=== PATIENT | male | born 1955 | race Hispanic/Latino ===

== ENCOUNTER 2016-12-17 14:23 | Inpatient (IN) | payer OTHER ==
[2016-12-17 16:43] LABS: Anion Gap 21 mmol/L; BUN/Creatinine Ratio 13.75; Blood Urea Nitrogen 11 mg/dL (9-20); Calcium 8.7 mg/dL (8.4-10.2); Carbon Dioxide 23 mmol/L (22-30); Chloride 97.4 mmol/L (98-107); Glucose 129 mg/dL (75-100); Potassium 3.7 mmol/L (3.6-5.0); Sodium 138 mmol/L (137-145)
[2016-12-17 16:49] LABS: Bilirubin,Urine NEG (Negative); Blood,Urine MOD (Negative); Granular Casts,Urine 1 /LPF; Ketones,Urine 20 mg/dL (Negative); Leukocyte Esterase,Urine NEG (Negative); Mucus,Urine FEW /HPF; Nitrite,Urine NEG (Negative); Urobilinogen,Urine < 2.0 mg/dL (<2.0)
[2016-12-17 17:02] LABS: Basophils % (Auto) 0.2 % (0.0-1.8); Hematocrit 48.9 % (35.5-45.6); Hemoglobin 16.7 gm/dl (11.8-15.2); Mean Corpuscular HGB Conc 34 % (32-34); Mean Corpuscular Hemoglobin 33 pg (28-32); Mean Corpuscular Volume 97 fl (84-94); Platelet Count 294 K/mm3 (140-440); Red Blood Count 5.02 M/mm3 (3.65-5.03); Red Cell Distribution Width 13.9 % (13.2-15.2); White Blood Count 16.7 K/mm3 (4.5-11.0)
--- NOTE | 2016-12-17 18:39 | Emergency Department Report ---
ED N/V/D HPI - General Chief complaint: Nausea/Vomiting/Diarrhea Stated complaint: DEHYRATED Time Seen by Provider: 12/17/16 17:33 Source: EMS Mode of arrival: Stretcher Limitations: No Limitations - History of Present Illness Initial comments: 61-year-old male with no past medical history is presented to the ED complaining of syncopal episode. Patient states over the last day he has had increased activity of his job and then today felt warm while at work. Patient admits he called his sister and by the time he got to her house he felt generalized weakness and then he had positive LOC. Sister caught him before he could before she laid him down slowly. Sister admits that he had brief LOC. When he was alert he was not confused afterwards. Patient currently has no complaints except for nausea epigastric abdominal pain from vomiting. Patient denies fevers/chills, chest pain, diarrhea. MD complaint: nausea, vomiting -: Gradual, days(s) (1) Description of Vomiting: food contents Location: epigastric Radiation: none Severity: mild Pain Scale: 2 Quality: cramping Consistency: intermittent Improves with: none Worsens with: eating - Related Data Allergies Allergy/AdvReac Type Severity Reaction Status Date / Time codeine AdvReac Anaphylaxis Verified 12/17/16 16:00 ED Review of Systems ROS: Stated complaint: DEHYRATED Other details as noted in HPI Constitutional: denies: chills, fever Eyes: denies: eye pain, eye discharge, vision change ENT: denies: ear pain, throat pain Respiratory: denies: cough, shortness of breath, wheezing Cardiovascular: denies: chest pain, palpitations Endocrine: no symptoms reported. denies: other Gastrointestinal: abdominal pain, nausea, vomiting. denies: diarrhea, constipation, hematemesis Genitourinary: denies: urgency, dysuria Musculoskeletal: denies: back pain, joint swelling, arthralgia Skin: denies: rash, lesions Neurological: other (syncope ). denies: headache, weakness, paresthesias Psychiatric: denies: anxiety, depression Hematological/Lymphatic: denies: easy bleeding, easy bruising ED Past Medical Hx - Past Medical History Previous Medical History?: No - Surgical History Past Surgical History?: No ED Physical Exam - General Limitations: No Limitations General appearance: alert, in no apparent distress - Head Head exam: Present: atraumatic, normocephalic - Eye Eye exam: Present: normal appearance - ENT ENT exam: Present: mucous membranes moist - Neck Neck exam: Present: normal inspection - Respiratory Respiratory exam: Present: normal lung sounds bilaterally. Absent: respiratory distress - Cardiovascular Cardiovascular Exam: Present: regular rate, normal rhythm. Absent: systolic murmur, diastolic murmur, rubs, gallop - GI/Abdominal GI/Abdominal exam: Present: soft, normal bowel sounds, other (abdominal exam benign ). Absent: distended, tenderness, guarding, rebound - Rectal Rectal exam: Present: deferred - Extremities Exam Extremities exam: Present: normal inspection - Back Exam Back exam: Present: normal inspection - Neurological Exam Neurological exam: Present: alert, oriented X3 - Psychiatric Psychiatric exam: Present: normal affect, normal mood - Skin Skin exam: Present: warm, dry, intact, normal color. Absent: rash ED Course Vital Signs 12/17/16 12/17/16 12/17/16 15:49 15:55 16:34 Temperature 98.8 F 98.8 F Pulse Rate 94 H 94 H Respiratory 18 18 18 Rate Blood Pressure 146/88 Blood Pressure 146/88 [Left] O2 Sat by Pulse 97 97 97 Oximetry 12/17/16 20:36 Temperature 98.1 F Pulse Rate 86 Respiratory 18 Rate Blood Pressure Blood Pressure 148/76 [Left] O2 Sat by Pulse 100 Oximetry ED Medical Decision Making - Lab Data Result diagrams: 12/17/16 16:07 12/17/16 16:07 - EKG Data -: EKG Interpreted by Ga EKG shows normal: sinus rhythm, axis (upright), intervals (qTC 504) - EKG Data When compared to previous EKG there are: previous EKG unavailable Interpretation: normal EKG (prolonged QTC ) - Radiology Data Radiology results: report reviewed, image reviewed no acute findings. no evidence of cholecystitis - Medical Decision Making 61-year-old male with no past medical history is presenting with department complaining of syncopal episode. Likely this is secondary to volume contraction secondary dehydration as patient states his abdomen sun all day. However given his prolonged QTC, I will order mag and admit pt to telemetry for syncopal episode. Dr Betancourt has accepted pt to his service - Differential Diagnosis GI bleed, OFELIA Critical Care Time: No Critical care attestation.: If time is entered above; I have spent that time in minutes in the direct care of this critically ill patient, excluding procedure time. ED Disposition Clinical Impression: Dehydration, Syncope, Prolonged QT interval syndrome Disposition: OP ADMIT IP TO THIS HOSP Is pt being admited?: Yes Does the pt Need Aspirin: No Condition: Stable
--- NOTE | 2016-12-17 19:00 | Admit Criteria Form ---
Admission Criteria Documentation: TELEMETRY CARE Telemetry Admission Guidelines (Place 'X' for any and all applicable criteria): Admission to telemetry [A] may be indicated for ANY ONE of the following(1)(2)(3 )(4)(5): [ ]I. Cardiac disease, including ANY ONE of the following (9)(10)(11)(12)(13 ): [ ]a) Postacute NE [ ]b) Low-risk patients with ST-segment elevation NE who have undergone successful percutaneous coronary intervention [ ]c) Unstable angina [ ]d) Suspected NE (until it is ruled out) [ ]e) Post cardiac surgery (first 48 to 72 hours unless complications occur) [ ]f) Acute arrhythmias (including significant tachycardia or bradycardia) [B] [ ]g) Firing of an implantable cardioverter defibrillator [C] [ ]h) Suspected pacemaker or implantable cardioverter defibrillator malfunction (10) [ ]i) New administration or adjustment of an antiarrhythmic drug [D ] [ ]j) Child admitted for acute congestive heart failure [ ]j) Long QT syndrome [ ]k) Advanced heart block (eg, second-degree Mobitz type II, third- degree heart block) [ ]l) Acute myocarditis or pericarditis [ ]m) Short-term (ambulatory or inpatient) monitoring after a cardiac procedure as indicated by ANY ONE of the following [E]: [ ]i) Electrophysiologic studies [ ]ii) Percutaneous coronary intervention with stent placement [ ]iii) Pacemaker placement with cardiac conduction defect [ ]iv) Implantable cardiac defibrillator placement [ ]II. Drug overdose or poisoning with substance that causes arrhythmias or QT prolongation (eg, phenothiazines, sympathomimetic agents, cyclic antidepressants, digitalis, antiarrhythmic drugs)(15) [ ]III. Short-term (ambulatory or inpatient) monitoring after therapeutic or diagnostic procedure requiring conscious sedation or anesthesia (eg, endoscopy, elective cardioversion) [ ]IV. Acute cerebrovascular even[F](18) [ ]V. Massive blood transfusion (eg, at least 10 units of packed red blood cells in 24 hours) [ ]. Variceal bleeding after endoscopy, sclerotherapy, or IV vasopressin [ ]VII. Uncorrected electrolyte abnormalities associated with an increased risk of dangerous arrhythmia [G]; examples include [ ]a) Hyperkalemia with attributable ECG changes [ ]b) Potassium greater than 6.5 mmol/L (mEq/L) in a patient without history of chronic renal disease [ ]c) Prolonged QT attributed to hypokalemia, hypomagnesemia, or hypocalcemia [X]VIII.Unexplained syncope or other neurologic event suspected of being due to arrhythmia due to a finding that increases risk; examples include(19)(20)(21): [X]a) High-risk ECG findings (eg, bifascicular block, bradycardia, abnormal QT interval, ventricular pre- excitation) [ ]b) History of previous syncope due to arrhythmia [ ]c) Abnormal ventricular function (eg, reduced ejection fraction ) [ ]d) Exertional or supine syncope [ ]e) Concerning syncope characteristics (eg, sudden loss of consciousness without prodrome) [ ]f) Family history of sudden [ ]g) Use of arrhythmogenic medication [ ]h) Suspected cardiac ischemia [ ]i) Known channelopathy (eg, long QT syndrome, Brugada syndrome, or catecholaminergic paroxysmal ventricular tachycardia) [ ]j) Known structural heart disease (eg, hypertrophic cardiomyopathy , severe valvular disease) [ ]k) Palpitations preceding syncope The original [employer] content created by [employer] has been revised. The portions of the content which have been revised are identified through the use of italic text or in bold, and [facility] [employer] has neither reviewed nor approved the modified material. All other unmodified content is copyright [employer]. Please see references footnoted in the original [employer] edition 2016 Admission Criteria Met: Yes
[2016-12-17 19:06] LABS: Albumin 4.2 g/dL (3.9-5); Albumin/Globulin Ratio 1.5 %; Bilirubin,Direct 0.3 mg/dL (0-0.2); Bilirubin,Indirect 0.5 mg/dL; Bilirubin,Total 0.8 mg/dL (0.1-1.2)
--- NOTE | 2016-12-17 19:16 | Ultrasound Report ---
FINAL REPORT PROCEDURE: US ABDOMEN LIMITED TECHNIQUE: Real-time sonography in multiple planes of the gallbladder fossa and CBD with imaging of the adjacent liver, pancreas, and right kidney was performed with image documentation. CPT 01662 HISTORY: epigastric pain COMPARISON: No prior studies are available for comparison. FINDINGS: Liver: Normal size and echotexture with no evidence of cystic or solid mass lesion. Gallbladder: Fluid filled. No gallstones, wall thickening, pericholecystic fluid, or sonographic Perez's sign . Intrahepatic bile ducts: Normal . Extrahepatic bile ducts: Common bile duct measures 2 millimeters in caliber. Pancreas: Not well-visualized. Right kidney: Normal echotexture. No focal renal mass, calculus, or hydronephrosis. Other: No free fluid. IMPRESSION: No sonographic evidence of cholelithiasis or acute cholecystitis
[2016-12-17] MEDS ORDERED: ZOFRAN IV ONE (19:44)
[2016-12-17] MEDS ORDERED: NACL 0.9% 1000 ML 1,000 ML IV ONE ×2 (19:49→21:56)
[2016-12-17] MEDS ORDERED: MAGNESIUM SULFATE 2GM/50ML 2 GM/50 ML BAG IV ONE (21:28)
[2016-12-17] MEDS ORDERED: ZOFRAN IV PRN (21:57)
[2016-12-17] MEDS ORDERED: TYLENOL PO PRN (21:58)
[2016-12-17] MEDS ORDERED: RESTORIL PO PRN (21:59)
--- NOTE | 2016-12-17 22:52 | History and Physical Report ---
History of Present Illness Date of examination: 12/17/16 Date of admission: 12/17/16 21:46 Chief complaint: Complaint of syncopal attack History of present illness: History of present illness: Patient is a 61-year-old male. He had a syncopal at home after he left the work. Patient admitted to having nausea or vomiting prior to syncopal attack and denied history of chest, Shortness of breath fever or chills, was also no history of dizziness prior to this syncopal episode. Syncopal episode lasted for few minutes and patient subsequently presented to the emergency room Past History Past Medical History: GERD Medications and Allergies Allergies Allergy/AdvReac Type Severity Reaction Status Date / Time codeine AdvReac Anaphylaxis Verified 12/17/16 16:00 Active Meds: Active Medications Acetaminophen (Tylenol) 650 mg PO Q4H PRN PRN Reason: For Pain/Fever/Headache Sodium Chloride (Nacl 0.9% 1000 Ml) 1,000 mls @ 125 mls/hr IV ONCE ONE Stop: 12/18/16 05:55 Ondansetron HCl (Zofran) 4 mg IV Q6H PRN PRN Reason: Nausea And Vomiting Temazepam (Restoril) 15 mg PO QHS PRN PRN Reason: Insomnia Review of Systems Constitutional: no weight loss, no weight gain, no fever, no chills, no sweats, no night sweats, no anorexia, no fatigue, no weakness, no malaise, no lethargy, no poor appetite, no daytime sleepiness, no chronic pain Eyes: bilateral: other (NO BILATERAL EYE SYMPTOMS) Ears, nose, mouth and throat: no ear pain, no decreased hearing, no nasal congestion, no nasal discharge, no sinus pressure, no mouth pain, no dysphagia, no hoarseness, no sore throat, no swelling in mouth, no swelling in throat, no odynophagia, no headache, no vertigo, no pain front of neck, no neck fullness/ pressure, no neck lump Cardiovascular: syncope, no chest pain, no orthopnea, no palpitations, no rapid/ irregular heart beat, no edema, no lightheadedness, no shortness of breath, no dyspnea on exertion, no high blood pressure, no leg edema Respiratory: no cough, no excessive sputum, no hemoptysis, no shortness of breath, no congestion, no wheezing, no pain, no pain on inspiration, no sleep apnea, no home oxygen Gastrointestinal: nausea, vomiting, heartburn, no abdominal pain, no diarrhea, no jaundice Genitourinary Male: no dysuria, no hematuria, no flank pain, no discharge, no urinary frequency, no urinary hesitancy, no nocturia, no incontinence, no impotence, no decreased libido, no testicular lump, no difficulties fathering child, no urinary retention Rectal: no pain, no incontinence, no itching, no hemorrhoids, no other Musculoskeletal: no shooting arm pain, no arm numbness/tingling, no leg numbness /tingling, no hot joints, no muscle cramps Integumentary: no rash, no pruritis, no sores, no wounds, no jaundice, no boils , no growths, no bullae, no lesions, no darkening of skin, no depigmentation, no acne, no dryness, no color changes, no brittle nails, no striae, no hirsutism , no foot/leg ulcers, no onychomycosis Neurological: syncope, no head injury, no transient paralysis, no paralysis, no weakness, no parathesias, no numbness, no tingling, no seizures, no tremors, no ataxia, no headaches, no migraines, no convulsions, no change in speech, no change in mentation, no memory loss, no sensory deficit, no double vision, no loss of vision, no hearing difficulties, no burning pain, no paralysis, no spasticity Psychiatric: no anxiety, no memory loss, no change in sleep habits, no sleep disturbances, no insomnia, no hypersomnia, no change in appetite, no change in libido, no suicidal ideation, no disorientation, no hallucinations, no paranoia , no depression, no hopelessness, no anhedonia, no anxiety attacks, no difficulties concentrating, no confusion, no irritability, no sadness/ tearfullness, no mood swings, no other Endocrine: no cold intolerance, no heat intolerance, no polyphagia, no excessive thirst, no polydipsia, no polyuria, no nocturia, no excessive sweating , no flushing, no weight change, no increase in ring/shoe/hat size, no proptosis , no deepening of the voice, no thyroid mass, no palpatations, no high blood sugars Hematologic/Lymphatic: no easy bruising, no easy bleeding, no lymphadenopathy, no lymphedema, no thrombophilia, no other Allergic/Immunologic: no allergic rhinitis Exam - Constitutional Vitals: Temp Pulse Resp BP Pulse Ox 98.1 F 86 18 148/76 100 12/17/16 20:36 12/17/16 20:36 12/17/16 20:36 12/17/16 20:36 12/17/16 20:36 General appearance: Present: no acute distress - EENT Eyes: Present: PERRL. Absent: conjunctival injection, exopthalmos ENT: no hearing intact, no clear oral mucosa, no dentition normal, no hearing decreased - Neck Neck: Present: supple, normal ROM. Absent: rigidity, enlarged thyroid, masses or JVD, carotid bruits - Respiratory Respiratory effort: normal - Cardiovascular Heart Sounds: Present: S1 & S2. Absent: gallop, systolic murmur, diastolic murmur, rub, click - Extremities Extremities: no ischemia, No edema Peripheral Pulses: within normal limits - Abdominal General gastrointestinal: Present: deferred, non-tender, non-distended. Absent : tender, distended, hypoactive bowel sounds, hepatomegaly, splenomegaly, mass Male genitourinary: Present: deferred - Rectal Rectal Exam: deferred - Integumentary Integumentary: Present: clear, warm - Musculoskeletal Musculoskeletal: strength equal bilaterally - Psychiatric Psychiatric: appropriate mood/affect - Neurologic Neurologic: CNII-XII intact Results - Labs CBC & Chem 7: 12/17/16 16:07 12/17/16 16:07 Labs: Laboratory Last Values WBC 16.7 K/mm3 (4.5-11.0) H 12/17/16 16:07 RBC 5.02 M/mm3 (3.65-5.03) 12/17/16 16:07 Hgb 16.7 gm/dl (11.8-15.2) H 12/17/16 16:07 Hct 48.9 % (35.5-45.6) H 12/17/16 16:07 MCV 97 fl (84-94) H 12/17/16 16:07 MCH 33 pg (28-32) H 12/17/16 16:07 MCHC 34 % (32-34) 12/17/16 16:07 RDW 13.9 % (13.2-15.2) 12/17/16 16:07 Plt Count 294 K/mm3 (140-440) 12/17/16 16:07 Lymph % (Auto) 3.4 % (13.4-35.0) L 12/17/16 16:07 [place] % (Auto) 9.6 % (0.0-7.3) H 12/17/16 16:07 Eos % (Auto) 0.0 % (0.0-4.3) 12/17/16 16:07 Baso % (Auto) 0.2 % (0.0-1.8) 12/17/16 16:07 Lymph # 0.6 K/mm3 (1.2-5.4) L 12/17/16 16:07 [place] # 1.6 K/mm3 (0.0-0.8) H 12/17/16 16:07 Eos # 0.0 K/mm3 (0.0-0.4) 12/17/16 16:07 Baso # 0.0 K/mm3 (0.0-0.1) 12/17/16 16:07 Seg Neutrophils % 86.8 % (40.0-70.0) H 12/17/16 16:07 Seg Neutrophils # 14.5 K/mm3 (1.8-7.7) H 12/17/16 16:07 Sodium 138 mmol/L (137-145) 12/17/16 16:07 Potassium 3.7 mmol/L (3.6-5.0) 12/17/16 16:07 Chloride 97.4 mmol/L (98-107) L 12/17/16 16:07 Carbon Dioxide 23 mmol/L (22-30) 12/17/16 16:07 Anion Gap 21 mmol/L 12/17/16 16:07 BUN 11 mg/dL (9-20) 12/17/16 16:07 Creatinine 0.8 mg/dL (0.8-1.5) 12/17/16 16:07 Estimated GFR > 60 ml/min 12/17/16 16:07 BUN/Creatinine Ratio 13.75 % 12/17/16 16:07 Glucose 129 mg/dL (75-100) H 12/17/16 16:07 Calcium 8.7 mg/dL (8.4-10.2) 12/17/16 16:07 Total Bilirubin 0.80 mg/dL (0.1-1.2) 12/17/16 16:07 Direct Bilirubin 0.3 mg/dL (0-0.2) H 12/17/16 16:07 Indirect Bilirubin 0.5 mg/dL 12/17/16 16:07 AST 22 units/L (5-40) 12/17/16 16:07 ALT 16 units/L (7-56) 12/17/16 16:07 Alkaline Phosphatase 67 units/L (35-129) 12/17/16 16:07 Troponin T < 0.010 ng/mL (0.00-0.029) 12/17/16 16:07 NT-Pro-B Natriuret Pep 49.19 pg/mL (0-900) 12/17/16 16:07 Total Protein 7.0 g/dL (6.3-8.2) 12/17/16 16:07 Albumin 4.2 g/dL (3.9-5) 12/17/16 16:07 Albumin/Globulin Ratio 1.5 % 12/17/16 16:07 Lipase 25 units/L (13-60) 12/17/16 16:07 Urine Color Yellow (Yellow) 12/17/16 16:34 Urine Turbidity Clear (Clear) 12/17/16 16:34 Urine pH 8.0 (5.0-7.0) H 12/17/16 16:34 Ur Specific [place] 1.012 (1.003-1.030) 12/17/16 16:34 Urine Protein 30 mg/dl mg/dL (Negative) 12/17/16 16:34 Urine Glucose (UA) Neg mg/dL (Negative) 12/17/16 16:34 Urine Ketones 20 mg/dL (Negative) 12/17/16 16:34 Urine Blood Mod (Negative) 12/17/16 16:34 Urine Nitrite Neg (Negative) 12/17/16 16:34 Urine Bilirubin Neg (Negative) 12/17/16 16:34 Urine Urobilinogen < 2.0 mg/dL (<2.0) 12/17/16 16:34 Ur Leukocyte Esterase Neg (Negative) 12/17/16 16:34 Urine WBC (Auto) 1.0 /HPF (0.0-6.0) 12/17/16 16:34 Urine RBC (Auto) 4.0 /HPF (0.0-6.0) 12/17/16 16:34 U Epithel Cells (Auto) < 1.0 /HPF (0-13.0) 12/17/16 16:34 Hyaline Casts 2 /LPF 12/17/16 16:34 Granular Casts 1 /LPF 12/17/16 16:34 Urine Mucus Few /HPF 12/17/16 16:34 Assessment and Plan - Patient Problems (1) Dehydration Current Visit: Yes Status: Acute (2) Prolonged QT interval syndrome Current Visit: Yes Status: Acute (3) Syncope Current Visit: Yes Status: Acute Qualifiers: Syncope type: S Encounter type: E Plan to address problem: Patient will be admitted to the medical floor on telemetry and have bilateral carotid doppler ultrasound in the morning and also 2-D echo in the morning she will will be on IV normal saline at 125 mL an hour for rehydration.Patient will also be on IV Zofran 4 mg every 6 hours for nausea vomiting and Tylenol 650 mg by mouth every 4 hours for fever or headache patient will have cardiac enzyme involving troponin total CK and CK-MB checked every 6 hours 2 more levels
[2016-12-18] MEDS ORDERED: NACL 0.9% 1000 ML 1,000 ML IV ONE (01:00)
[2016-12-18] MEDS: PROTONIX PO SCH ×2 (01:16→09:19)
--- NOTE | 2016-12-18 08:58 | XRay Report ---
Single view chest: History: Syncope. Findings: Normal cardiomediastinal silhouette the trachea is midline. No consolidation, pneumothorax or pleural effusion. Impression: No acute cardiopulmonary findings.
--- NOTE | 2016-12-18 10:57 | Consultation ---
History of Present Illness Consult date: 12/18/16 Consult reason: syncope, other (Prolonged QTc interval) History of present illness: This is a 61 year old male with no past medical history who is admitted with syncope thought secondary to dehydration. Patient works in construction outside and on yesterday he felt light headed became nauseous and passed out. He denies chest pain and shortness of breath just prior to his syncopal episode. When he came to himself he had nausea vomiting and abdominal pain. His presenting ECG shows a normal sinus rhythm with a prolonged QT interval of 452ms thus this cardiac consultation. His labs shows a normal potassium and serum calcium on presentation. Patient denies drug use. No events on telemetry monitoring. Medications and Allergies Allergies Allergy/AdvReac Type Severity Reaction Status Date / Time codeine AdvReac Anaphylaxis Verified 12/17/16 16:00 Active Meds: Active Medications Acetaminophen (Tylenol) 650 mg PO Q4H PRN PRN Reason: For Pain/Fever/Headache Ondansetron HCl (Zofran) 4 mg IV Q6H PRN PRN Reason: Nausea And Vomiting Pantoprazole Sodium (Protonix) 40 mg PO QDAY LUCIO Last Admin: 12/18/16 09:19 Dose: 40 mg Temazepam (Restoril) 15 mg PO QHS PRN PRN Reason: Insomnia Physical Examination Vital Signs Temp Pulse Resp BP Pulse Ox 98.8 F 94 H 18 146/88 97 12/17/16 15:49 12/17/16 15:49 12/17/16 15:49 12/17/16 15:49 12/17/16 15:49 General appearance: no acute distress HEENT: Positive: PERRL Neck: Positive: trachea midline Cardiac: Positive: Reg Rate and Rhythm Lungs: Positive: Decreased Breath Sounds Neuro: Positive: Grossly Intact Results 12/17/16 16:07 12/17/16 16:07 Assessment and Plan Syncope s/t dehydration Prolonged QTc interval Leukocytosis Plan: Repeat 12 lead ECG. Echocardiogram for LVEF assessment.
--- NOTE | 2016-12-18 11:29 | Progress Note ---
Assessment and Plan Assessment and plan: Patient is a 61-year-old man without any prior medical history except for GERD on occasion, who hasn't seen a PCP/doctor in over 30 years who presents with syncopal episode. 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 He drove to his sister home which is about 45 minutes away and had a witnessed syncopal episode without any seizure activity noted. He denies any chest pain or palpitations prior to the syncopal episode. His diagnosis of dehydration. He is found have a white blood cell count 16.7 without any cough, fever or chills. And abdominal ultrasound reported as- syncopal episode: no acute cholecystitis or cholelithiasis. ED documented EKG has prolonged QT interval; therefore, I consulted cardiology. -Syncopal episode: Ordered echocardiogram -Prolonged QT interval: Consulted cardiology -Leukocytosis appears reactive: Ordered chest x-ray, blood culture, ua. -DVT prophylaxis: Subcutaneous heparin -GI prophylaxis: PPI History Interval history: Patient seen and examined. Follow up on syncope. Overnight uneventful. No cp, sob, n/v or severe headaches. Imaging, old records, testing, labs, nursing notes reviewed. Hospitalist Physical - Physical exam Narrative exam: GEN: Thin frail man BMI 17.3 NAD, AWAKE, ALERT, ORIENTATED x 3 HEENT: NCAT, PERRL, EOMI, OP CLEAR NECK: SUPPLE, NO THYROMEGALY, NO JVD, NO LAD CVS: RRR, NORMAL S1S2 LUNGS/CHEST: CTA B, NORMAL CHEST EXPANSION B, GOOD AIR ENTRY B ABD: SOFT, NTND, GBS, NO REBOUND OR GUARDING EXT/SKIN: NO SIGNIFICANT EDEMA OR RASH MSK: FROM X 4 EXTREMITIES NEURO: CN 2-12 GROSSLY INTACT, NO FOCAL DEFICITS PSY: CALM - Constitutional Vitals: Temp Pulse Resp BP Pulse Ox 99.2 F 69 18 132/70 95 12/18/16 07:20 12/18/16 07:20 12/18/16 07:20 12/18/16 07:20 12/18/16 07:20 General appearance: Present: no acute distress Results - Labs CBC & Chem 7: 12/17/16 16:07 12/17/16 16:07 Labs: Laboratory Last Values WBC 16.7 K/mm3 (4.5-11.0) H 12/17/16 16:07 RBC 5.02 M/mm3 (3.65-5.03) 12/17/16 16:07 Hgb 16.7 gm/dl (11.8-15.2) H 12/17/16 16:07 Hct 48.9 % (35.5-45.6) H 12/17/16 16:07 MCV 97 fl (84-94) H 12/17/16 16:07 MCH 33 pg (28-32) H 12/17/16 16:07 MCHC 34 % (32-34) 12/17/16 16:07 RDW 13.9 % (13.2-15.2) 12/17/16 16:07 Plt Count 294 K/mm3 (140-440) 12/17/16 16:07 Lymph % (Auto) 3.4 % (13.4-35.0) L 12/17/16 16:07 [place] % (Auto) 9.6 % (0.0-7.3) H 12/17/16 16:07 Eos % (Auto) 0.0 % (0.0-4.3) 12/17/16 16:07 Baso % (Auto) 0.2 % (0.0-1.8) 12/17/16 16:07 Lymph # 0.6 K/mm3 (1.2-5.4) L 12/17/16 16:07 [place] # 1.6 K/mm3 (0.0-0.8) H 12/17/16 16:07 Eos # 0.0 K/mm3 (0.0-0.4) 12/17/16 16:07 Baso # 0.0 K/mm3 (0.0-0.1) 12/17/16 16:07 Seg Neutrophils % 86.8 % (40.0-70.0) H 12/17/16 16:07 Seg Neutrophils # 14.5 K/mm3 (1.8-7.7) H 12/17/16 16:07 Sodium 138 mmol/L (137-145) 12/17/16 16:07 Potassium 3.7 mmol/L (3.6-5.0) 12/17/16 16:07 Chloride 97.4 mmol/L (98-107) L 12/17/16 16:07 Carbon Dioxide 23 mmol/L (22-30) 12/17/16 16:07 Anion Gap 21 mmol/L 12/17/16 16:07 BUN 11 mg/dL (9-20) 12/17/16 16:07 Creatinine 0.8 mg/dL (0.8-1.5) 12/17/16 16:07 Estimated GFR > 60 ml/min 12/17/16 16:07 BUN/Creatinine Ratio 13.75 % 12/17/16 16:07 Glucose 129 mg/dL (75-100) H 12/17/16 16:07 POC Glucose 89 (70-105) 12/18/16 07:52 Calcium 8.7 mg/dL (8.4-10.2) 12/17/16 16:07 Total Bilirubin 0.80 mg/dL (0.1-1.2) 12/17/16 16:07 Direct Bilirubin 0.3 mg/dL (0-0.2) H 12/17/16 16:07 Indirect Bilirubin 0.5 mg/dL 12/17/16 16:07 AST 22 units/L (5-40) 12/17/16 16:07 ALT 16 units/L (7-56) 12/17/16 16:07 Alkaline Phosphatase 67 units/L (35-129) 12/17/16 16:07 Troponin T < 0.010 ng/mL (0.00-0.029) 12/17/16 16:07 NT-Pro-B Natriuret Pep 49.19 pg/mL (0-900) 12/17/16 16:07 Total Protein 7.0 g/dL (6.3-8.2) 12/17/16 16:07 Albumin 4.2 g/dL (3.9-5) 12/17/16 16:07 Albumin/Globulin Ratio 1.5 % 12/17/16 16:07 Lipase 25 units/L (13-60) 12/17/16 16:07 Urine Color Yellow (Yellow) 12/17/16 16:34 Urine Turbidity Clear (Clear) 12/17/16 16:34 Urine pH 8.0 (5.0-7.0) H 12/17/16 16:34 Ur Specific [place] 1.012 (1.003-1.030) 12/17/16 16:34 Urine Protein 30 mg/dl mg/dL (Negative) 12/17/16 16:34 Urine Glucose (UA) Neg mg/dL (Negative) 12/17/16 16:34 Urine Ketones 20 mg/dL (Negative) 12/17/16 16:34 Urine Blood Mod (Negative) 12/17/16 16:34 Urine Nitrite Neg (Negative) 12/17/16 16:34 Urine Bilirubin Neg (Negative) 12/17/16 16:34 Urine Urobilinogen < 2.0 mg/dL (<2.0) 12/17/16 16:34 Ur Leukocyte Esterase Neg (Negative) 12/17/16 16:34 Urine WBC (Auto) 1.0 /HPF (0.0-6.0) 12/17/16 16:34 Urine RBC (Auto) 4.0 /HPF (0.0-6.0) 12/17/16 16:34 U Epithel Cells (Auto) < 1.0 /HPF (0-13.0) 12/17/16 16:34 Hyaline Casts 2 /LPF 12/17/16 16:34 Granular Casts 1 /LPF 12/17/16 16:34 Urine Mucus Few /HPF 12/17/16 16:34
[2016-12-18] MEDS ORDERED: HEPARIN 10,000 UNITS/10 ML IV ONE ×2 (13:06→17:00)
[2016-12-18] MEDS ORDERED: NITROSTAT SL PRN (13:06)
[2016-12-18] MEDS ORDERED: PLAVIX PO ONE ×2 (13:11→17:00)
[2016-12-18 13:56] LABS: Hematocrit 47.2 % (35.5-45.6); Hemoglobin 15.7 gm/dl (11.8-15.2)
[2016-12-18 14:08] LABS: INR 1.14 (0.87-1.13)
[2016-12-18 14:09] LABS: Partial Thromboplastin Time 30.5 Sec. (24.2-36.6)
[2016-12-18] MEDS: TOPROL XL PO SCH (16:00)
[2016-12-18] MEDS: HALFPRIN EC PO SCH (16:00)
[2016-12-18] MEDS: HEPARIN/ 0.45% NACL-25,000 UNIT/500 ML 25,000 UNITS/500 ML BAG IV SCH (17:07)
--- NOTE | 2016-12-19 09:13 | Progress Note ---
Assessment and Plan Syncope preceded by atypical retrosternal chest pain ECG on admission - subtle ST segment elevation in anteroseptal leads that ultimately recovered without reciprocal changes Echo is showing a low normal LVEF, anterior wall hypokinesis and possible ASD Cardiac enzymes are negative to date Patient is currently asymptomatic Recommendations: Unstable angina protocol (asa, heparin, metoprolol, plavix, lipitor, ntg) Coronary angiography on wednesday (sooner if any recurrent chest pain or hemodynamic instability) Subjective Date of service: 12/19/16 Principal diagnosis: unstable angina Interval history: No further chest pain Objective Vital Signs Temp Pulse Pulse Pulse Pulse Pulse Pulse 12/19/16 07:24 98.3 F 64 12/19/16 06:49 98.5 F 58 L 12/19/16 06:00 63 12/19/16 01:00 98.1 F 63 12/18/16 20:12 98.3 F 66 66 66 66 66 12/18/16 16:00 65 12/18/16 15:00 98.7 F 69 69 69 69 69 12/18/16 11:10 98.4 F 65 65 65 65 65 Resp BP BP Pulse Ox 12/19/16 07:24 18 141/80 97 12/19/16 06:49 21 129/77 97 12/19/16 06:00 12/19/16 01:00 21 118/74 98 12/18/16 20:12 20 127/79 97 12/18/16 16:00 147/79 12/18/16 15:00 20 173/87 12/18/16 11:10 18 127/66 - Physical Examination HEENT: Positive: PERRL, Normocephaly Neck: Positive: trachea midline Cardiac: Positive: Reg Rate and Rhythm Lungs: Positive: clear to auscultation Neuro: Positive: Grossly Intact Abdomen: Positive: Unremarkable Skin: Positive: Clear Gait: Normal Gait Extremities: Present: normal - Labs and Meds Coagulation 12/18/16 Range/Units 13:30 PT 14.5 (12.2-14.9) Sec. INR 1.14 H (0.87-1.13) APTT 30.5 (24.2-36.6) Sec. Lipids 12/19/16 Range/Units 00:38 Triglycerides 102 (2-149) mg/dL Cholesterol 151 (50-199) mg/dL HDL Cholesterol 48 (40-59) mg/dL Cholesterol/HDL Ratio 3.14 % CBC 12/18/16 Range/Units 13:30 Hgb 15.7 H (11.8-15.2) gm/dl Hct 47.2 H (35.5-45.6) % Plt Count 281 (140-440) K/mm3
[2016-12-19] MEDS ORDERED: XANAX PO PRN (10:04)
[2016-12-19] MEDS: HALFPRIN EC PO SCH (11:01)
[2016-12-19] MEDS: PLAVIX PO SCH (11:01)
[2016-12-19] MEDS: TOPROL XL PO SCH (11:02)
[2016-12-19] MEDS: PROTONIX PO SCH ×2 (11:02→21:30)
[2016-12-19] MEDS ORDERED: HEPARIN SUB-Q SCH (12:00)
[2016-12-19] MEDS: HEPARIN/ 0.45% NACL-25,000 UNIT/500 ML 25,000 UNITS/500 ML BAG IV SCH (15:00)
--- NOTE | 2016-12-19 15:54 | Progress Note ---
Assessment and Plan Patient is a 61-year-old man without any prior medical history except for GERD on occasion, who hasn't seen a PCP/doctor in over 30 years who presents with syncopal episode. He denies any chest pain or palpitations prior to the syncopal episode. He is found have a white blood cell count 16.7 without any cough, fever or chills. ED documented EKG has prolonged QT interval; consulted cardiology. -Syncopal episode: Ordered echocardiogram, will obtain CT head. -Prolonged QT interval: Consulted cardiology, plan for coronary angiogram on Wednesday -Leukocytosis appears reactive: Ordered chest x-ray, blood culture, ua: appears normal -DVT prophylaxis: Subcutaneous heparin -GI prophylaxis: PPI History Interval history: Patient seen and examined. Follow up on syncope. Overnight uneventful. No cp, sob, n/v or severe headaches. Imaging, old records, testing, labs, nursing notes reviewed. Hospitalist Physical - Physical exam Narrative exam: GEN: Thin frail man BMI 17.3 NAD, AWAKE, ALERT, ORIENTATED x 3 HEENT: NCAT, PERRL, EOMI, OP CLEAR NECK: SUPPLE, NO THYROMEGALY, NO JVD, NO LAD CVS: RRR, NORMAL S1S2 LUNGS/CHEST: CTA B, NORMAL CHEST EXPANSION B, GOOD AIR ENTRY B ABD: SOFT, NTND, GBS, NO REBOUND OR GUARDING EXT/SKIN: NO SIGNIFICANT EDEMA OR RASH MSK: FROM X 4 EXTREMITIES NEURO: CN 2-12 GROSSLY INTACT, NO FOCAL DEFICITS PSY: CALM Subjective Date of service: 12/19/16 Principal diagnosis: unstable angina Objective - Constitutional Vitals: Vital Signs - 12hr 12/19/16 12/19/16 12/19/16 06:00 06:49 07:24 Temperature 98.5 F 98.3 F Pulse Rate 63 Pulse Rate [ 58 L 64 Right Radial] Respiratory 21 18 Rate Blood Pressure 129/77 141/80 [Left Arm] O2 Sat by Pulse 97 97 Oximetry 12/19/16 12/19/16 11:09 14:31 Temperature 98.0 F 98.3 F Pulse Rate Pulse Rate [ 67 63 Right Radial] Respiratory 18 18 Rate Blood Pressure 140/69 159/88 [Left Arm] O2 Sat by Pulse 95 94 Oximetry - Labs CBC & Chem 7: 12/20/16 02:15 12/17/16 16:07 Labs: Abnormal lab results 12/18/16 12/19/16 Range/Units 23:15 12:05 Heparin Anti-Xa Level 0.26 L 0.25 L (0.3-0.7) U.I./ml
[2016-12-19] MEDS: ALUM-MAG HYDROX-SIMETH 200-200-20MG/5ML PO PRN (19:33)
[2016-12-20] MEDS: HEPARIN/ 0.45% NACL-25,000 UNIT/500 ML 25,000 UNITS/500 ML BAG IV SCH (00:19)
[2016-12-20 02:45] LABS: Hemoglobin 16.8 gm/dl (11.8-15.2)
--- NOTE | 2016-12-20 09:15 | Progress Note ---
Assessment and Plan Syncope preceded by atypical retrosternal chest pain Slightly prolonged QT on initial EKG currently stable ECG on admission - subtle ST segment elevation in anteroseptal leads that ultimately recovered without reciprocal changes Echo is showing a low normal LVEF, anterior wall hypokinesis and possible ASD Cardiac enzymes are negative to date Patient is currently asymptomatic Recommendations: Unstable angina protocol (asa, heparin, metoprolol, plavix, lipitor, ntg) Coronary angiography tomorrow (sooner if any recurrent chest pain or hemodynamic instability. 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
[2016-12-20] MEDS ORDERED: NACL 0.9% 500 ML 500 ML IV SCH (10:00)
[2016-12-20] MEDS: HALFPRIN EC PO SCH (10:51)
[2016-12-20] MEDS: PROTONIX PO SCH ×2 (10:51→21:24)
[2016-12-20] MEDS: PLAVIX PO SCH (10:51)
[2016-12-20] MEDS: TOPROL XL PO SCH (12:50)
[2016-12-20] MEDS: ALUM-MAG HYDROX-SIMETH 200-200-20MG/5ML PO PRN (14:40)
--- NOTE | 2016-12-20 15:36 | Progress Note ---
Assessment and Plan Patient is a 61-year-old man without any prior medical history except for GERD on occasion, who hasn't seen a PCP/doctor in over 30 years who presents with syncopal episode. He denies any chest pain or palpitations prior to the syncopal episode. He is found have a white blood cell count 16.7 without any cough, fever or chills. ED documented EKG has prolonged QT interval; consulted cardiology. -Syncopal episode: Ordered echocardiogram (result pending), will obtain CT head. -Prolonged QT interval: Consulted cardiology, plan for coronary angiogram on Wednesday -Leukocytosis appears reactive: chest x-ray was normal , blood culture, ua: appears normal -DVT prophylaxis: Subcutaneous heparin -GI prophylaxis: PPI History Interval history: Patient seen and examined. Follow up on syncope. Overnight uneventful. No cp, sob, n/v or severe headaches. Imaging, old records, testing, labs, nursing notes reviewed. Hospitalist Physical - Physical exam Narrative exam: GEN: Thin frail man BMI 17.3 NAD, AWAKE, ALERT, ORIENTATED x 3 HEENT: NCAT, PERRL, EOMI, OP CLEAR NECK: SUPPLE, NO THYROMEGALY, NO JVD, NO LAD CVS: RRR, NORMAL S1S2 LUNGS/CHEST: CTA B, NORMAL CHEST EXPANSION B, GOOD AIR ENTRY B ABD: SOFT, NTND, GBS, NO REBOUND OR GUARDING EXT/SKIN: NO SIGNIFICANT EDEMA OR RASH MSK: FROM X 4 EXTREMITIES NEURO: CN 2-12 GROSSLY INTACT, NO FOCAL DEFICITS PSY: CALM Subjective Date of service: 12/20/16 Principal diagnosis: unstable angina Objective - Constitutional Vitals: Vital Signs - 12hr 12/20/16 12/20/16 12/20/16 04:00 07:34 09:59 Temperature 98.4 F 98.4 F Pulse Rate 60 Pulse Rate [ 60 59 L Right Radial] Respiratory 18 18 Rate Blood Pressure 122/80 147/82 [Left Arm] O2 Sat by Pulse 96 98 Oximetry 12/20/16 11:17 Temperature 98.1 F Pulse Rate Pulse Rate [ 60 Right Radial] Respiratory 18 Rate Blood Pressure 142/86 [Left Arm] O2 Sat by Pulse 98 Oximetry - Labs CBC & Chem 7: 12/21/16 07:36 12/17/16 16:07 Labs: Abnormal lab results 12/20/16 Range/Units 02:15 Hgb 16.8 H (11.8-15.2) gm/dl Hct 49.0 H (35.5-45.6) %
[2016-12-20] MEDS ORDERED: AMBIEN PO PRN (16:27)
[2016-12-21] MEDS ORDERED: HEPARIN/NS 5000 UNIT/500ML(CATH LAB) 1,000 ML IR ONE (08:11)
[2016-12-21] MEDS ORDERED: CALAN ONE (08:11)
[2016-12-21] MEDS ORDERED: HEPARIN 10,000 UNITS/10 ML ONE (08:11)
[2016-12-21] MEDS ORDERED: XYLOCAINE 2% INFILTRATI ONE (08:11)
[2016-12-21 08:43] LABS: Basophils % (Auto) 0.5 % (0.0-1.8); Eosinophils % (Auto) 0.8 % (0.0-4.3); Hematocrit 53.3 % (35.5-45.6); Mean Corpuscular HGB Conc 34 % (32-34); Mean Corpuscular Hemoglobin 33 pg (28-32); Mean Corpuscular Volume 98 fl (84-94); Platelet Count 271 K/mm3 (140-440); Red Blood Count 5.44 M/mm3 (3.65-5.03); Red Cell Distribution Width 13.8 % (13.2-15.2); White Blood Count 7.1 K/mm3 (4.5-11.0)
[2016-12-21] MEDS ORDERED: SUBLIMAZE ONE (09:08)
[2016-12-21] MEDS ORDERED: NITROGLYCERIN SYRINGE 0 ML ONE (09:16)
[2016-12-21] MEDS ORDERED: NACL 0.9% 500 ML 500 ML ONE (09:44)
[2016-12-21] MEDS: VERSED ONE ×2 (10:04→10:07)
[2016-12-21] MEDS ORDERED: NACL 0.9% 1000 ML 1,000 ML IV SCH (12:00)
--- NOTE | 2016-12-21 12:37 | Prelim Cardiac Cath Report ---
Preliminary Cath Report - Hemodynamic Findings Aorta(AO): 175/105 Left Ventricular(LV): 170/18 End Diastolic Pressure(EDP): 18 - Other Findings Estimated blood loss: none Dominance: right Estimated Ejection Fraction: 50 LV Contractility: lower limits of normal Coronary Anatomy: Left main coronary artery was angiographically normal. The left anterior descending artery contained minimal irregularities in its proximal segment, otherwise this vessel and its diagonal branches were angiographically normal. Circumflex artery and its obtuse marginal branches were angiographically normal. The right coronary artery was dominant and similarly angiographically normal. No significant coronary lesions were noted in either left or right coronary systems. Post Diagnosis: No significant coronary artery disease, left ventricular systolic function at lower limits of normal. Recommendations: risk factor modification
--- NOTE | 2016-12-21 12:39 | Event Note ---
Date: 12/21/16 Patient's cardiac catheterization showed no significant coronary disease, left ventricular systolic function lower limits of normal, ejection fraction 50%. No further ischemic cardiac workup is indicated. The patient should follow-up with Dr. Driscoll on discharge, for [facility] as outpatient for further assessment of possible underlying ASD.
[2016-12-21] MEDS: ALUM-MAG HYDROX-SIMETH 200-200-20MG/5ML PO PRN (12:58)
[2016-12-21] MEDS ORDERED: MORPHINE IV PRN (14:02)
--- NOTE | 2016-12-21 14:18 | Discharge Summary ---
Providers - Providers Date of Admission: 12/17/16 21:46 Date of discharge: 12/21/16 Attending physician: TEZ WEI 12/18/16 07:34 Consult to Physician [CONS] Routine Consulting Provider: NOMI LIRA Reason For Exam: prolonged QT syndrome per ED Place consult to:: Nomi Lira MD Notified:: DR LIRA 12/21/16 11:34 Consult to Cardiac Rehabilitation [CONS] Routine Reason For Exam: Cardiac Rehab Evaluation Primary care physician: HAUL DRIVER Hospitalization Condition: Stable Hospital course: Patient is a 61-year-old man without any prior medical history except for GERD on occasion, who hasn't seen a PCP/doctor in over 30 years who presents with syncopal episode. He denies any chest pain or palpitations prior to the syncopal episode. He is found have a white blood cell count 16.7 without any cough, fever or chills. ED documented EKG has prolonged QT interval; consulted cardiology. Discharge diagnosis and management: -Syncopal episode: echocardiogram obtained showed normal EF, obtained CT head. Will need [facility] outpt for possible ASD -Prolonged QT interval: Consulted cardiology, s/p coronary angiogram today, normal coronaries -Leukocytosis appears reactive: chest x-ray was normal , blood culture, UA: appears normal -N/V: likely from anesthesia Disposition: DC-01 TO HOME OR SELFCARE Time spent for discharge: 34 minutes Core Measure Documentation - Palliative Care Palliative Care/ Comfort Measures: Not Applicable - Core Measures Any of the following diagnoses?: none Exam - Constitutional Vitals: Temp Pulse Resp BP Pulse Ox 98.2 F 72 20 138/86 95 12/21/16 11:05 12/21/16 11:05 12/21/16 11:05 12/21/16 11:05 12/21/16 09:04 General appearance: Present: no acute distress, well-nourished - EENT Eyes: Present: PERRL ENT: hearing intact, clear oral mucosa - Neck Neck: Present: supple, normal ROM - Respiratory Respiratory effort: normal Respiratory: bilateral: CTA - Cardiovascular Heart Sounds: Present: S1 & S2. Absent: rub, click - Extremities Extremities: pulses symmetrical, No edema Peripheral Pulses: within normal limits - Abdominal General gastrointestinal: Present: soft, non-tender, non-distended, normal bowel sounds - Integumentary Integumentary: Present: clear, warm, dry - Musculoskeletal Musculoskeletal: gait normal, strength equal bilaterally - Psychiatric Psychiatric: appropriate mood/affect, intact judgment & insight - Neurologic Neurologic: CNII-XII intact, moves all extremities Plan Activity: advance as tolerated, fall precautions Weight Bearing Status: Non-Weight Bearing Diet: low fat, low salt Wound: keep clean and dry Follow up with: PRIMARY CARE, [Primary Care Provider] - 3-5 Days Prescriptions: AtorvaSTATin [Lipitor] 40 mg PO QHS #30 tablet Aspirin EC [Aspirin Enteric Coated TAB] 81 mg PO QDAY #30 tablet Metoprolol Xl [Metoprolol SUCCINATE ER TAB] 25 mg PO QDAY #30 tablet Pantoprazole [Protonix TAB] 40 mg PO QDAY #30 tablet
[2016-12-21] MEDS: HALFPRIN EC PO SCH (14:57)
[2016-12-21] MEDS: PROTONIX PO SCH (15:02)
[2016-12-21] MEDS: PLAVIX PO SCH (17:14)
[2016-12-21] MEDS: TOPROL XL PO SCH ×2 (17:14→17:38)
[2016-12-21 17:38] VITALS: BP 170/100
== END 2016-12-21 18:24 | disposition home or self-care (01) | DRG 287 ==
LOC: ED 14:23 → 4A 21:28 → UNDOADMOB 21:28 → 4A 21:46
PROVIDERS: ADMIT Internal Medicine; ATTEND Internal Medicine
PROC: 4A023N7 Measurement of Cardiac Sampling and Pressure, Left Heart, Percutaneous Approach (ICD-10-PCS; principal; 2016-12-21)
PROC: B2111ZZ Fluoroscopy of Multiple Coronary Arteries using Low Osmolar Contrast (ICD-10-PCS; 2016-12-21)
DX: R55 Syncope and collapse (principal); E86.0 Dehydration; I45.81 Long QT syndrome; K21.9 Gastro-esophageal reflux disease without esophagitis; D72.829 Elevated white blood cell count, unspecified; Z88.8 Allergy status to other drugs, medicaments and biological substances
CPT/HCPCS: 36415; 71010; 76705; 80048; 80061; 80074; 81001; 82962; 83690; 83880; 84484; 85014; 85018; 85025; 85049; 85520; 85610; 85730; 87040; 93005; 93010; 93306; 93880; 96374; 96375; A9270-GY; J1644; J2250; J2405; J3010; J3475; J7030; J7040